=== PATIENT | male | born 1960 | race Caucasian/White ===

== ENCOUNTER 2021-08-12 14:37 | Emergency (ER) | payer OTHER ==
[2021-08-12 15:08] VITALS: TEMP 98.3; BMI 14.0
[2021-08-12] MEDS ORDERED: DIPHTH,PERTUSS(ACELL),TET 0.5 ML DISP.SYRIN IM ONE ×2 (15:19→16:15)
[2021-08-12 16:38] LABS: BASO % 0.7 % (0-2.0); EOS % 0.8 % (0-4.5); HEMATOCRIT 31.5 % (35.4-49); HEMOGLOBIN 10.4 GM/dL (11.7-16.9); LYMPH % 12.4 % (8-40); MCH 26.2 pg (25.7-33.7); MEAN CELL VOLUME 79.3 fl (80-96); MEAN PLT VOLUME 7.9 fl (7.5-11.1); MONO % 7.1 % (3.8-10.2); PLATELET COUNT 384 10^3/uL (134-434); RBC 3.97 M/mm3 (4.00-5.60); RDW 18.3 % (11.9-15.9); WHITE BLOOD COUNT 10.2 K/mm3 (4.0-10.0)
[2021-08-12 16:57] LABS: CHLORIDE 97 mmol/L (98-107); SODIUM 139 mmol/L (136-145)
[2021-08-12 16:59] LABS: CALCIUM 9.3 mg/dL (8.5-10.1)
[2021-08-12 17:00] LABS: ANION GAP 8 MMOL/L (8-16); BLOOD UREA NITROGEN 17.3 mg/dL (7-18); CO2 34 mmol/L (21-32); GLUCOSE,RANDOM 97 mg/dL (74-106)
[2021-08-12 17:03] LABS: CREATININE 0.6 mg/dL (0.55-1.3); SGOT/AST 31 U/L (15-37); SGPT/ALT 64 U/L (13-61)
[2021-08-12 17:05] LABS: BILIRUBIN,TOTAL 0.3 mg/dL (0.2-1); TOT PROT 8.7 g/dl (6.4-8.2)
[2021-08-12 17:06] LABS: ALK PHOS 108 U/L (45-117)
[2021-08-12 22:15] VITALS: BP 127/95; PULSE 75
== END 2021-08-12 23:49 | disposition home or self-care (01) ==
LOC: JER 14:37
PROC: 3E0234Z Introduction of Serum, Toxoid and Vaccine into Muscle, Percutaneous Approach (ICD-10-PCS; principal; 2021-08-12)
DX: S01.91XA Laceration without foreign body of unspecified part of head, initial encounter (principal); W19.XXXA Unspecified fall, initial encounter
CPT/HCPCS: 36415; 70450-TC; 72125-TC; 80053; 82550; 84484; 85025; 90471; 90715; 93005; 93010; 99285-25

== ENCOUNTER 2021-10-16 10:08 | Inpatient (IN) | payer OTHER ==
[2021-10-16] MEDS ORDERED: SODIUM CHLORIDE 0.9% 500 ML INFUS.BAG IV ONE (10:32)
[2021-10-16] MEDS ORDERED: ACETAMINOPHEN 1000 MG/100 ML BAG IVPB ONE (10:32)
[2021-10-16] MEDS ORDERED: PIPERACILLIN/TAZOB 4.5 GM 4.5 GM in DEXTROSE 5%-WATER 100 ML IVPB ONE (11:11)
[2021-10-16] MEDS ORDERED: PIPERACILLIN/TAZOB 4.5 GM 4.5 GM/100 ML BAG IVPB ONE (11:33)
[2021-10-16] MEDS ORDERED: ACETAMINOPHEN INJECTION 100 ML IVPB ONE (11:33)
[2021-10-16 12:07] LABS: VENOUS BASE EXCESS 10.6 mmol/L (-2-2); VENOUS O2 SATURATION 94.1 % (70-80); VENOUS PCO2 49.8 mmHg (38-52); VENOUS PH 7.472 (7.310-7.410)
[2021-10-16 12:11] LABS: HEMATOCRIT 29.4 % (35.4-49); HEMOGLOBIN 9.4 GM/dL (11.7-16.9); MCH 26.9 pg (25.7-33.7); MEAN CELL VOLUME 83.9 fl (80-96); PLATELET COUNT 391 10^3/uL (134-434); RDW 15.2 % (11.9-15.9); WHITE BLOOD COUNT 20.7 K/mm3 (4.0-10.0)
[2021-10-16 12:21] LABS: INR 1.64 (0.83-1.09); PROTHROMBIN TIME (PATIENT) 18.5 SEC (9.7-13.0)
[2021-10-16 12:23] LABS: ACTIVATED PTT 32.6 SECONDS (25.2-36.5)
[2021-10-16 12:30] LABS: CHLORIDE 96 mmol/L (98-107); SODIUM 137 mmol/L (136-145)
[2021-10-16 12:32] LABS: ALBUMIN 2.4 g/dl (3.4-5.0); ANION GAP 8 MMOL/L (8-16); BLOOD UREA NITROGEN 27.1 mg/dL (7-18); CALCIUM 9.1 mg/dL (8.5-10.1); CO2 32 mmol/L (21-32); GLUCOSE,RANDOM 118 mg/dL (74-106)
[2021-10-16 12:35] LABS: CREATININE 0.8 mg/dL (0.55-1.3); SGOT/AST 44 U/L (15-37); SGPT/ALT 37 U/L (13-61)
[2021-10-16 12:37] LABS: BILIRUBIN,TOTAL 0.8 mg/dL (0.2-1)
[2021-10-16 12:38] LABS: ALK PHOS 100 U/L (45-117)
[2021-10-16 12:58] LABS: ANISOCYTOSIS 2+; MACROCYTOSIS 0; PLATELET ESTIMATE NORMAL
[2021-10-16] MEDS ORDERED: ACETAMINOPHEN 325 MG TABLET (FP) PO PRN (15:21)
[2021-10-16] MEDS ORDERED: VANCOMYCIN 1 GM in D5W (PRE-DOCKED) 1,000 MG/250 ML IVPB ONE (15:27)
[2021-10-16] MEDS ORDERED: VANCOMYCIN 1 GRAM (PRE-DOCKED) 1,000 MG/250 ML BAG IVPB ONE (16:20)
[2021-10-16] MEDS ORDERED: ENOXAPARIN NA (PORCINE) 40 MG/0.4 ML DISP.SYRIN SQ ONE (16:20)
[2021-10-16] MEDS: ENOXAPARIN NA (PORCINE) 40 MG/0.4 ML DISP.SYRIN SQ SCH (17:09)
[2021-10-16] MEDS: SODIUM CHLORIDE 1,000 ML IV SCH (17:09)
[2021-10-16] MEDS ORDERED: DEXTROSE 5%-WATER - 50 ML IVPB ONE (19:54)
[2021-10-16] MEDS ORDERED: PIPERACILLIN/TAZOBACTAM 3.375 GM VIAL IVPB ONE (19:54)
[2021-10-16] MEDS: PIPERACILLIN/TAZOB 3.375 GM 3.375 GM in DEXTROSE 5%-WATER - 50 ML IVPB SCH (20:08)
[2021-10-17] MEDS ORDERED: PIPERACILLIN/TAZOBACTAM 3.375 GM VIAL IVPB ONE ×3 (01:09→18:31)
[2021-10-17] MEDS ORDERED: DEXTROSE 5%-WATER - 50 ML IVPB ONE ×3 (01:10→18:32)
[2021-10-17] MEDS: PIPERACILLIN/TAZOB 3.375 GM 3.375 GM in DEXTROSE 5%-WATER - 50 ML IVPB SCH ×3 (01:48→18:34)
[2021-10-17] MEDS: SODIUM CHLORIDE 1,000 ML IV SCH ×2 (06:37→17:20)
[2021-10-17] MEDS: ENOXAPARIN NA (PORCINE) 40 MG/0.4 ML DISP.SYRIN SQ SCH ×2 (09:01→18:22)
[2021-10-17 11:12] LABS: EPI CELLS 19 /uL (0-25.1); HYALINE CASTS 0 /uL (0-3.1); PH,URINE 6.5 (5.0-8.0); URINE APPEARANCE CLEAR; URINE BACTERIA 1693 /uL (0-1359); URINE BILIRUBIN NEGATIVE (NEGATIVE); URINE COLOR DK YELLOW; URINE GLUCOSE (UA) NEGATIVE (NEGATIVE); URINE KETONE TRACE (NEGATIVE); URINE LEUK ESTERASE NEGATIVE (NEGATIVE); URINE NITRITE NEGATIVE (NEGATIVE); URINE PROTEIN 2+ (NEGATIVE); URINE RBC 34 /uL (0-23.9); URINE WBC 17 /uL (0-25.8)
[2021-10-17 13:03] LABS: BASO % 0.4 % (0-2.0); EOS % 0.7 % (0-4.5); HEMOGLOBIN 7.7 GM/dL (11.7-16.9); LYMPH % 8.6 % (8-40); MCH 27.2 pg (25.7-33.7); MCHC 32.2 g/dl (32.0-35.9); MEAN CELL VOLUME 84.4 fl (80-96); MEAN PLT VOLUME 8.6 fl (7.5-11.1); MONO % 6.9 % (3.8-10.2); NEUT % 83.4 % (42.8-82.8); PLATELET COUNT 296 10^3/uL (134-434); RBC 2.85 M/mm3 (4.00-5.60); RDW 15.6 % (11.9-15.9); WHITE BLOOD COUNT 11.6 K/mm3 (4.0-10.0)
[2021-10-17 13:33] LABS: ALBUMIN 1.9 g/dl (3.4-5.0); BLOOD UREA NITROGEN 19.4 mg/dL (7-18); CALCIUM 8.8 mg/dL (8.5-10.1)
[2021-10-17 13:34] LABS: MAGNESIUM 2.1 mg/dL (1.8-2.4)
[2021-10-17 13:36] LABS: CREATININE 0.5 mg/dL (0.55-1.3)
[2021-10-17 13:37] LABS: BILIRUBIN,TOTAL 0.6 mg/dL (0.2-1); TOT PROT 6.5 g/dl (6.4-8.2)
[2021-10-17] MEDS ORDERED: ACETAMINOPHEN 650 MG/20.3 ML ORAL SOLUTION (CUPS) PEG PRN (15:05)
[2021-10-17] MEDS ORDERED: LEXAPRO PEG SCH (15:15)
[2021-10-17] MEDS ORDERED: ROSUVASTATIN CA 40 MG TABLET NR SCH (15:15)
[2021-10-17] MEDS: ARIPiprazole 2 MG TABLET NR SCH (18:32)
[2021-10-17] MEDS: SENNOSIDES 8.8 MG/5 ML BULK BOTTLE PEG SCH (18:33)
[2021-10-17] MEDS: FUROSEMIDE 40 MG/5 ML UNIT-DOSE CUP PEG SCH (18:33)
[2021-10-17] MEDS: DOCUSATE NA 100 MG/10 ML UNIT-DOSE CUPS GT SCH (18:34)
[2021-10-17] MEDS: ASPIRIN 81 MG CHEWABLE TABLETS PEG SCH (18:34)
[2021-10-17] MEDS: GLYCOPYRROLATE PEG SCH (18:48)
[2021-10-17] MEDS: SCOPOLAMINE HYDROBROMIDE 1 PATCH PATCH.TD72 TD SCH ×2 (18:51→22:13)
[2021-10-17] MEDS: MELATONIN 1 MG TABLET NR SCH (22:02)
[2021-10-17] MEDS: traZODone HCL 50 MG TABLET (FP) PEG SCH (22:02)
[2021-10-17] MEDS: FAMOTIDINE 40 MG/5 ML ORAL SUSPENSION PEG SCH (22:10)
[2021-10-17] MEDS: GABAPENTIN 250 MG/5 ML ORAL SOLUTION, 470 ML BOTTLE PEG SCH (22:11)
[2021-10-18] MEDS ORDERED: DEXTROSE 5%-WATER - 50 ML IVPB ONE ×3 (01:18→17:16)
[2021-10-18] MEDS ORDERED: PIPERACILLIN/TAZOBACTAM 3.375 GM VIAL IVPB ONE ×3 (01:18→17:16)
[2021-10-18] MEDS: PIPERACILLIN/TAZOB 3.375 GM 3.375 GM in DEXTROSE 5%-WATER - 50 ML IVPB SCH ×3 (01:52→17:27)
[2021-10-18] MEDS ORDERED: PT OWN MED DRAWER 7, Y5N ONE ×2 (09:52→22:00)
[2021-10-18] MEDS ORDERED: ESCITALOPRAM OXALATE 20 MG TABLET PEG SCH (10:00)
[2021-10-18 10:52] LABS: HEMATOCRIT 23.5 % (35.4-49); HEMOGLOBIN 7.5 GM/dL (11.7-16.9); MCH 27.5 pg (25.7-33.7); MEAN CELL VOLUME 85.9 fl (80-96); MEAN PLT VOLUME 9.3 fl (7.5-11.1); PLATELET COUNT 349 10^3/uL (134-434); RBC 2.74 M/mm3 (4.00-5.60); RDW 15.3 % (11.9-15.9); WHITE BLOOD COUNT 6.7 K/mm3 (4.0-10.0)
[2021-10-18 11:40] LABS: CALCIUM 8.5 mg/dL (8.5-10.1)
[2021-10-18 11:41] LABS: ALBUMIN 2.1 g/dl (3.4-5.0)
[2021-10-18 11:42] LABS: BLOOD UREA NITROGEN 17.7 mg/dL (7-18)
[2021-10-18 11:44] LABS: CREATININE 0.5 mg/dL (0.55-1.3)
[2021-10-18 11:45] LABS: BILIRUBIN,TOTAL 0.5 mg/dL (0.2-1); TOT PROT 6.6 g/dl (6.4-8.2)
[2021-10-18] MEDS: DOCUSATE NA 100 MG/10 ML UNIT-DOSE CUPS GT SCH (12:34)
[2021-10-18] MEDS: ASPIRIN 81 MG CHEWABLE TABLETS PEG SCH (12:35)
[2021-10-18] MEDS: ESCITALOPRAM OXALATE 20 MG TABLET PEG SCH (12:35)
[2021-10-18] MEDS: ROSUVASTATIN CA 20 MG TABLET NR SCH (12:35)
[2021-10-18] MEDS: FUROSEMIDE 40 MG/5 ML UNIT-DOSE CUP PEG SCH (12:35)
[2021-10-18] MEDS: ENOXAPARIN NA (PORCINE) 40 MG/0.4 ML DISP.SYRIN SQ SCH (12:36)
[2021-10-18] MEDS: SENNOSIDES 8.8 MG/5 ML BULK BOTTLE PEG SCH (12:36)
[2021-10-18] MEDS: FAMOTIDINE 40 MG/5 ML ORAL SUSPENSION PEG SCH ×2 (12:36→22:04)
[2021-10-18] MEDS: GABAPENTIN 250 MG/5 ML ORAL SOLUTION, 470 ML BOTTLE PEG SCH ×2 (12:37→22:05)
[2021-10-18] MEDS: GLYCOPYRROLATE PEG SCH (12:38)
[2021-10-18] MEDS: ARIPiprazole 2 MG TABLET NR SCH (12:38)
[2021-10-18] MEDS: GLYCOPYRROLATE 1 MG TABLET PEG SCH ×2 (15:56→22:06)
[2021-10-18] MEDS: BUDESONIDE 0.5 MG/2 ML INH SUSP VIAL NEB SCH ×3 (20:43→22:05)
[2021-10-18] MEDS: ALBUTEROL SO4 0.083% IH SOL 2.5 MG/3 ML VIAL.NEB. NEB SCH ×2 (20:44→22:06)
[2021-10-18] MEDS: traZODone HCL 50 MG TABLET (FP) PEG SCH (22:04)
[2021-10-18] MEDS: MELATONIN 1 MG TABLET NR SCH (22:05)
[2021-10-19] MEDS ORDERED: DEXTROSE 5%-WATER - 50 ML IVPB ONE ×3 (00:45→20:00)
[2021-10-19] MEDS ORDERED: PIPERACILLIN/TAZOBACTAM 3.375 GM VIAL IVPB ONE ×3 (00:45→19:59)
[2021-10-19] MEDS: PIPERACILLIN/TAZOB 3.375 GM 3.375 GM in DEXTROSE 5%-WATER - 50 ML IVPB SCH ×3 (01:00→20:21)
[2021-10-19] MEDS: GLYCOPYRROLATE 1 MG TABLET PEG SCH ×3 (05:39→22:45)
[2021-10-19] MEDS ORDERED: PT OWN MED DRAWER 7, Y5N ONE ×3 (05:41→13:07)
[2021-10-19 07:14] LABS: HEMATOCRIT 21.4 % (35.4-49); MCH 27.2 pg (25.7-33.7); MCHC 32.3 g/dl (32.0-35.9); MEAN CELL VOLUME 84.1 fl (80-96); MEAN PLT VOLUME 8.5 fl (7.5-11.1); PLATELET COUNT 321 10^3/uL (134-434); RBC 2.54 M/mm3 (4.00-5.60); RDW 15.2 % (11.9-15.9); WHITE BLOOD COUNT 6.7 K/mm3 (4.0-10.0)
[2021-10-19 07:32] LABS: CALCIUM 8.2 mg/dL (8.5-10.1)
[2021-10-19 07:33] LABS: BLOOD UREA NITROGEN 13.6 mg/dL (7-18)
[2021-10-19 07:36] LABS: CREATININE 0.6 mg/dL (0.55-1.3)
[2021-10-19 07:38] LABS: BILIRUBIN,TOTAL 0.3 mg/dL (0.2-1); TOT PROT 6.4 g/dl (6.4-8.2)
[2021-10-19 08:48] LABS: HEMOGLOBIN 6.9 GM/dL (11.7-16.9)
[2021-10-19] MEDS: ASPIRIN 81 MG CHEWABLE TABLETS PEG SCH (11:03)
[2021-10-19] MEDS: DOCUSATE NA 100 MG/10 ML UNIT-DOSE CUPS GT SCH (11:04)
[2021-10-19] MEDS: ARIPiprazole 2 MG TABLET NR SCH (11:04)
[2021-10-19] MEDS: FUROSEMIDE 40 MG/5 ML UNIT-DOSE CUP PEG SCH (11:05)
[2021-10-19] MEDS: ROSUVASTATIN CA 20 MG TABLET NR SCH (11:05)
[2021-10-19] MEDS: ESCITALOPRAM OXALATE 20 MG TABLET PEG SCH (11:05)
[2021-10-19] MEDS: FAMOTIDINE 40 MG/5 ML ORAL SUSPENSION PEG SCH ×2 (11:06→23:43)
[2021-10-19] MEDS: SENNOSIDES 8.8 MG/5 ML BULK BOTTLE PEG SCH (11:07)
[2021-10-19] MEDS: GABAPENTIN 250 MG/5 ML ORAL SOLUTION, 470 ML BOTTLE PEG SCH ×2 (11:48→22:44)
[2021-10-19 20:07] LABS: GLIADIN ANTIBODY IGA 6 units (0-19); GLIADIN ANTIBODY IGG 1 units (0-19); TRANSGLUTAMINASE IGG 4 U/mL (0-5)
[2021-10-19] MEDS: MELATONIN 1 MG TABLET NR SCH (22:43)
[2021-10-19] MEDS: traZODone HCL 50 MG TABLET (FP) PEG SCH (22:43)
[2021-10-20] MEDS ORDERED: DEXTROSE 5%-WATER - 50 ML IVPB ONE ×3 (01:46→16:32)
[2021-10-20] MEDS ORDERED: PIPERACILLIN/TAZOBACTAM 3.375 GM VIAL IVPB ONE ×3 (01:46→16:32)
[2021-10-20] MEDS: PIPERACILLIN/TAZOB 3.375 GM 3.375 GM in DEXTROSE 5%-WATER - 50 ML IVPB SCH ×3 (02:42→17:34)
[2021-10-20] MEDS: GLYCOPYRROLATE 1 MG TABLET PEG SCH ×3 (07:04→22:04)
[2021-10-20 09:49] LABS: HEMOGLOBIN 8.8 GM/dL (11.7-16.9); MCH 28.2 pg (25.7-33.7); MCHC 33.8 g/dl (32.0-35.9); MEAN CELL VOLUME 83.4 fl (80-96); MEAN PLT VOLUME 8.4 fl (7.5-11.1); PLATELET COUNT 326 10^3/uL (134-434); RBC 3.12 M/mm3 (4.00-5.60); RDW 15.7 % (11.9-15.9); WHITE BLOOD COUNT 7.5 K/mm3 (4.0-10.0)
[2021-10-20 10:13] LABS: ALBUMIN 2.1 g/dl (3.4-5.0); BLOOD UREA NITROGEN 12.3 mg/dL (7-18)
[2021-10-20 10:14] LABS: CALCIUM 8.1 mg/dL (8.5-10.1)
[2021-10-20] MEDS ORDERED: PT OWN MED DRAWER 7, Y5N ONE ×3 (10:14→21:58)
[2021-10-20 10:16] LABS: CREATININE 0.6 mg/dL (0.55-1.3)
[2021-10-20] MEDS: ROSUVASTATIN CA 20 MG TABLET NR SCH (10:16)
[2021-10-20] MEDS: ESCITALOPRAM OXALATE 20 MG TABLET PEG SCH (10:16)
[2021-10-20] MEDS: DOCUSATE NA 100 MG/10 ML UNIT-DOSE CUPS GT SCH (10:16)
[2021-10-20 10:18] LABS: BILIRUBIN,TOTAL 0.7 mg/dL (0.2-1); TOT PROT 6.6 g/dl (6.4-8.2)
[2021-10-20] MEDS: ASPIRIN 81 MG CHEWABLE TABLETS PEG SCH (10:19)
[2021-10-20] MEDS: FUROSEMIDE 40 MG/5 ML UNIT-DOSE CUP PEG SCH (10:20)
[2021-10-20] MEDS: FAMOTIDINE 40 MG/5 ML ORAL SUSPENSION PEG SCH ×2 (10:20→22:04)
[2021-10-20] MEDS: SENNOSIDES 8.8 MG/5 ML BULK BOTTLE PEG SCH (10:20)
[2021-10-20] MEDS: ARIPiprazole 2 MG TABLET NR SCH (10:21)
[2021-10-20] MEDS: GABAPENTIN 250 MG/5 ML ORAL SOLUTION, 470 ML BOTTLE PEG SCH ×2 (10:23→22:03)
[2021-10-20] MEDS: SCOPOLAMINE HYDROBROMIDE 1 PATCH PATCH.TD72 TD SCH (17:35)
[2021-10-20] MEDS: BUDESONIDE 0.5 MG/2 ML INH SUSP VIAL NEB SCH ×2 (22:01→22:02)
[2021-10-20] MEDS: ALBUTEROL SO4 0.083% IH SOL 2.5 MG/3 ML VIAL.NEB. NEB SCH ×2 (22:02→22:03)
[2021-10-20] MEDS: traZODone HCL 50 MG TABLET (FP) PEG SCH (22:03)
[2021-10-20] MEDS: MELATONIN 1 MG TABLET NR SCH (22:03)
[2021-10-21] MEDS ORDERED: DEXTROSE 5%-WATER - 50 ML IVPB ONE ×3 (00:58→16:54)
[2021-10-21] MEDS ORDERED: PIPERACILLIN/TAZOBACTAM 3.375 GM VIAL IVPB ONE ×3 (00:58→16:54)
[2021-10-21] MEDS: PIPERACILLIN/TAZOB 3.375 GM 3.375 GM in DEXTROSE 5%-WATER - 50 ML IVPB SCH ×3 (01:37→17:05)
[2021-10-21] MEDS ORDERED: PT OWN MED DRAWER 7, Y5N ONE ×3 (05:04→22:07)
[2021-10-21] MEDS: GLYCOPYRROLATE 1 MG TABLET PEG SCH ×3 (05:06→22:15)
[2021-10-21] MEDS ORDERED: VANCOMYCIN 1 GM in D5W (PRE-DOCKED) 1,000 MG/250 ML IVPB ONE (08:32)
[2021-10-21] MEDS: DOCUSATE NA 100 MG/10 ML UNIT-DOSE CUPS GT SCH (09:29)
[2021-10-21] MEDS: ASPIRIN 81 MG CHEWABLE TABLETS PEG SCH (09:29)
[2021-10-21] MEDS: ROSUVASTATIN CA 20 MG TABLET NR SCH (09:29)
[2021-10-21] MEDS: ESCITALOPRAM OXALATE 20 MG TABLET PEG SCH (09:29)
[2021-10-21] MEDS: FUROSEMIDE 40 MG/5 ML UNIT-DOSE CUP PEG SCH (09:30)
[2021-10-21] MEDS: FAMOTIDINE 40 MG/5 ML ORAL SUSPENSION PEG SCH ×2 (09:31→22:15)
[2021-10-21] MEDS: SENNOSIDES 8.8 MG/5 ML BULK BOTTLE PEG SCH (09:32)
[2021-10-21] MEDS: ARIPiprazole 2 MG TABLET NR SCH (09:32)
[2021-10-21] MEDS: GABAPENTIN 250 MG/5 ML ORAL SOLUTION, 470 ML BOTTLE PEG SCH ×2 (09:40→22:14)
[2021-10-21 16:49] VITALS: BMI 19.9
[2021-10-21] MEDS: VANCOMYCIN 1 GRAM (PRE-DOCKED) 1,000 MG/250 ML BAG IVPB SCH (22:11)
[2021-10-21] MEDS: MELATONIN 1 MG TABLET NR SCH (22:14)
[2021-10-21] MEDS: traZODone HCL 50 MG TABLET (FP) PEG SCH (22:14)
[2021-10-22] MEDS ORDERED: DEXTROSE 5%-WATER - 50 ML IVPB ONE ×3 (01:09→16:57)
[2021-10-22] MEDS ORDERED: PIPERACILLIN/TAZOBACTAM 3.375 GM VIAL IVPB ONE ×3 (01:09→16:57)
[2021-10-22] MEDS: PIPERACILLIN/TAZOB 3.375 GM 3.375 GM in DEXTROSE 5%-WATER - 50 ML IVPB SCH ×3 (01:30→17:27)
[2021-10-22] MEDS: GLYCOPYRROLATE 1 MG TABLET PEG SCH ×3 (05:36→22:28)
[2021-10-22] MEDS: BUDESONIDE 0.5 MG/2 ML INH SUSP VIAL NEB SCH ×3 (08:34→12:03)
[2021-10-22] MEDS: ALBUTEROL SO4 0.083% IH SOL 2.5 MG/3 ML VIAL.NEB. NEB SCH ×3 (08:34→12:03)
[2021-10-22] MEDS ORDERED: PT OWN MED DRAWER 7, Y5N ONE (09:04)
[2021-10-22] MEDS: VANCOMYCIN 1 GRAM (PRE-DOCKED) 1,000 MG/250 ML BAG IVPB SCH ×2 (09:31→20:13)
[2021-10-22] MEDS: ASPIRIN 81 MG CHEWABLE TABLETS PEG SCH (09:32)
[2021-10-22] MEDS: ESCITALOPRAM OXALATE 20 MG TABLET PEG SCH (09:32)
[2021-10-22] MEDS: DOCUSATE NA 100 MG/10 ML UNIT-DOSE CUPS GT SCH (09:32)
[2021-10-22] MEDS: ROSUVASTATIN CA 20 MG TABLET NR SCH (09:32)
[2021-10-22] MEDS: ARIPiprazole 2 MG TABLET NR SCH (09:33)
[2021-10-22] MEDS: FUROSEMIDE 40 MG/5 ML UNIT-DOSE CUP PEG SCH ×2 (09:33→10:54)
[2021-10-22] MEDS: SENNOSIDES 8.8 MG/5 ML BULK BOTTLE PEG SCH (09:33)
[2021-10-22 09:37] LABS: HEMATOCRIT 27.8 % (35.4-49); HEMOGLOBIN 8.8 GM/dL (11.7-16.9); MCH 27.1 pg (25.7-33.7); MCHC 31.7 g/dl (32.0-35.9); MEAN CELL VOLUME 85.5 fl (80-96); MEAN PLT VOLUME 8.5 fl (7.5-11.1); PLATELET COUNT 419 10^3/uL (134-434); RBC 3.25 M/mm3 (4.00-5.60); RDW 15.8 % (11.9-15.9); WHITE BLOOD COUNT 6.7 K/mm3 (4.0-10.0)
[2021-10-22] MEDS: FAMOTIDINE 40 MG/5 ML ORAL SUSPENSION PEG SCH ×2 (09:37→22:27)
[2021-10-22] MEDS: GABAPENTIN 250 MG/5 ML ORAL SOLUTION, 470 ML BOTTLE PEG SCH ×2 (09:39→22:27)
[2021-10-22 10:02] LABS: BLOOD UREA NITROGEN 10.5 mg/dL (7-18); CALCIUM 8.4 mg/dL (8.5-10.1); CREATININE 0.7 mg/dL (0.55-1.3); MAGNESIUM 2.3 mg/dL (1.8-2.4); PHOSPHOROUS 3.5 mg/dL (2.5-4.9)
[2021-10-22] MEDS: MELATONIN 1 MG TABLET NR SCH (22:26)
[2021-10-22] MEDS: traZODone HCL 50 MG TABLET (FP) PEG SCH (22:26)
[2021-10-23] MEDS ORDERED: DEXTROSE 5%-WATER - 50 ML IVPB ONE ×2 (00:28→08:33)
[2021-10-23] MEDS ORDERED: PIPERACILLIN/TAZOBACTAM 3.375 GM VIAL IVPB ONE ×2 (00:28→08:33)
[2021-10-23] MEDS: PIPERACILLIN/TAZOB 3.375 GM 3.375 GM in DEXTROSE 5%-WATER - 50 ML IVPB SCH ×2 (01:32→10:10)
[2021-10-23] MEDS: GLYCOPYRROLATE 1 MG TABLET PEG SCH (05:40)
[2021-10-23] MEDS ORDERED: PT OWN MED DRAWER 7, Y5N ONE (09:01)
[2021-10-23] MEDS: VANCOMYCIN 1 GRAM (PRE-DOCKED) 1,000 MG/250 ML BAG IVPB SCH (09:04)
[2021-10-23] MEDS: DOCUSATE NA 100 MG/10 ML UNIT-DOSE CUPS GT SCH (09:09)
[2021-10-23] MEDS: ASPIRIN 81 MG CHEWABLE TABLETS PEG SCH (09:10)
[2021-10-23] MEDS: ESCITALOPRAM OXALATE 20 MG TABLET PEG SCH (09:10)
[2021-10-23] MEDS: ROSUVASTATIN CA 20 MG TABLET NR SCH (09:10)
[2021-10-23] MEDS: FAMOTIDINE 40 MG/5 ML ORAL SUSPENSION PEG SCH (09:10)
[2021-10-23] MEDS: SENNOSIDES 8.8 MG/5 ML BULK BOTTLE PEG SCH (09:11)
[2021-10-23] MEDS: FUROSEMIDE 40 MG/5 ML UNIT-DOSE CUP PEG SCH (09:11)
[2021-10-23] MEDS: ARIPiprazole 2 MG TABLET NR SCH (09:11)
[2021-10-23] MEDS: GABAPENTIN 250 MG/5 ML ORAL SOLUTION, 470 ML BOTTLE PEG SCH (09:12)
[2021-10-23 09:15] VITALS: TEMP 98.5
[2021-10-23] MEDS ORDERED: SODIUM CHLORIDE 500 ML IV STA (09:39)
[2021-10-23] MEDS: BUDESONIDE 0.5 MG/2 ML INH SUSP VIAL NEB SCH ×2 (09:48→10:16)
[2021-10-23] MEDS: ALBUTEROL SO4 0.083% IH SOL 2.5 MG/3 ML VIAL.NEB. NEB SCH ×2 (09:48→10:17)
[2021-10-23 10:36] VITALS: BP 98/71; PULSE 60
== END 2021-10-23 11:32 | DRG 720 ==
LOC: JER 10:08 → JERBED 12:15 → J5S 17:46
PROVIDERS: ADMIT Internal Medicine; ATTEND Internal Medicine
PROC: 5A1955Z Respiratory Ventilation, Greater than 96 Consecutive Hours (ICD-10-PCS; principal; 2021-10-16)
PROC: 0D20XUZ Change Feeding Device in Upper Intestinal Tract, External Approach (ICD-10-PCS; 2021-10-17)
DX: A41.52 Sepsis due to Pseudomonas (principal); R50.9 Fever, unspecified; G82.50 Quadriplegia, unspecified; J95.851 Ventilator associated pneumonia; J96.10 Chronic respiratory failure, unspecified whether with hypoxia or hypercapnia; N39.0 Urinary tract infection, site not specified; K94.23 Gastrostomy malfunction; E78.5 Hyperlipidemia, unspecified; D50.9 Iron deficiency anemia, unspecified; B95.2 Enterococcus as the cause of diseases classified elsewhere; D72.829 Elevated white blood cell count, unspecified; Z74.01 Bed confinement status; Z93.0 Tracheostomy status; Z86.73 Personal history of transient ischemic attack (TIA), and cerebral infarction without residual deficits
CPT/HCPCS: 36415; 36430; 36511; 71045-TC-FY; 74018-TC-FY; 80048; 80053; 81003; 82272; 82607; 82728; 82746; 82784; 82803; 83010; 83516; 83540; 83550; 83605; 83615; 83735; 84100; 84155; 84165; 84238; 84443; 84484; 85025; 85027; 85045; 85610; 85730; 86334; 86707; 86708; 86850; 86880; 86900; 86901; 86922; 87040; 87070; 87086; 87186; 87205; 87340; 87350; 87804; 87902; 93005; 93010; 94002; 97161-GP; 99285-25; C9803-CS; P9038; P9058; U0003; U0005

== ENCOUNTER 2024-07-02 06:27 | Inpatient (IN) | payer OTHER ==
[2024-07-02 07:36] LABS: BASO % 0.6 % (0-2.0); EOS % 1.2 % (0-4.5); HEMATOCRIT 41.6 % (35.4-49); HEMOGLOBIN 13.4 GM/dL (11.7-16.9); MCH 27.4 pg (25.7-33.7); MCHC 32.2 g/dl (32.0-35.9); MEAN PLT VOLUME 8.9 fl (7.5-11.1); MONO % 10.8 % (3.8-10.2); NEUT % 73.4 % (42.8-82.8); PLATELET COUNT 380 10^3/uL (134-434); RDW 15.2 % (11.9-15.9); WHITE BLOOD COUNT 10.3 K/mm3 (4.0-10.0)
[2024-07-02 07:55] LABS: INR 1.16 (0.83-1.09); PROTHROMBIN TIME (PATIENT) 13.3 SEC (9.7-13.0)
[2024-07-02 07:57] LABS: POTASSIUM 3.5 mmol/L (3.5-5.1)
[2024-07-02 07:59] LABS: CALCIUM 9.2 mg/dL (8.5-10.1)
[2024-07-02] MEDS ORDERED: FAMOTIDINE 20 MG/50 ML IVPB 20 MG/50 ML MG IVPB ONE (07:59)
[2024-07-02] MEDS ORDERED: PANTOPRAZOLE SODIUM 40 MG VIAL ONE (07:59)
[2024-07-02] MEDS ORDERED: ACETAMINOPHEN INJECTION 100 ML ONE (07:59)
[2024-07-02 08:00] LABS: BLOOD UREA NITROGEN 18.7 mg/dL (7-18); MAGNESIUM 2.4 mg/dL (1.8-2.4)
[2024-07-02 08:03] LABS: CREATININE 0.8 mg/dL (0.55-1.3)
[2024-07-02 08:04] LABS: BILIRUBIN,TOTAL 0.4 mg/dL (0.2-1); TOT PROT 8.3 g/dl (6.4-8.2)
[2024-07-02] MEDS: SODIUM CHLORIDE 1,000 ML IV STA (08:10)
[2024-07-02] MEDS: PANTOPRAZOLE SODIUM 40 MG VIAL IVPUSH ONE (08:10)
[2024-07-02] MEDS: FAMOTIDINE 20 MG/50 ML IVPB 20 MG/50 ML MG IVPB ONE (08:10)
[2024-07-02] MEDS: ACETAMINOPHEN 1000 MG/100 ML BAG IVPB ONE (08:10)
[2024-07-02] MEDS ORDERED: ONDANSETRON 4 MG/2 ML VIAL ONE (14:08)
[2024-07-02] MEDS: SODIUM CHLORIDE 1,000 ML IV SCH (14:19)
[2024-07-02] MEDS: ONDANSETRON 4 MG/2 ML VIAL IVPB ONE (14:19)
[2024-07-02] MEDS ORDERED: PIPERACILLIN/TAZOB 4.5 GM 4.5 GM in DEXTROSE 5%-WATER 100 ML IVPB SCH (18:00)
[2024-07-02] MEDS ORDERED: VANCOMYCIN HCL 1,500 MG in DEXTROSE 5%-WATER - 250 ML IVPB SCH (18:00)
[2024-07-02] MEDS ORDERED: PIPERACILLIN/TAZOB 4.5 GM 4.5 GM/100 ML BAG IVPB ONE (18:51)
[2024-07-02] MEDS: PIPERACILLIN/TAZOB 4.5 GM 4.5 GM in DEXTROSE 5%-WATER 100 ML IVPB SCH (18:54)
[2024-07-02] MEDS: VANCOMYCIN PREMIX 1.5 GM 1,500 MG/300 ML BAG IVPB SCH (21:18)
[2024-07-02] MEDS: GLYCOPYRROLATE 1 MG TABLET GT SCH (21:18)
[2024-07-02] MEDS: ALBUTEROL SO4 0.083% IH SOL 2.5 MG/3 ML VIAL.NEB. NEB SCH (21:20)
[2024-07-02] MEDS: traZODone HCL 50 MG TABLET (FP) PEG SCH (21:21)
[2024-07-02] MEDS: ROSUVASTATIN CA 40 MG TABLET PO SCH (21:21)
[2024-07-02] MEDS: ESCITALOPRAM OXALATE 20 MG TABLET GT SCH (21:22)
[2024-07-02] MEDS: LATANOPROST 0.005% OPHTH SOLN 2.5ML BOTTLE OU SCH (21:22)
[2024-07-02] MEDS ORDERED: ALBUTEROL SO4 0.083% IH SOL 2.5 MG/3 ML VIAL.NEB. NEB ONE (21:23)
[2024-07-02] MEDS ORDERED: LACTULOSE 20 GM/30 ML UDC (FOR ORAL USE ONLY) GT SCH (22:00)
[2024-07-02] MEDS ORDERED: BUDESONIDE GT SCH (22:00)
[2024-07-02] MEDS ORDERED: PANTOPRAZOLE SODIUM 40 MG VIAL IVPUSH SCH (22:00)
[2024-07-02] MEDS ORDERED: FAMOTIDINE 20 MG/2 ML GT SCH (22:00)
[2024-07-02] MEDS ORDERED: DOCUSATE NA 100 MG/10 ML UNIT-DOSE CUPS GT SCH (22:00)
[2024-07-02] MEDS ORDERED: SENNOSIDES 8.6MG TABLET (FP) PO SCH (22:00)
[2024-07-02] MEDS ORDERED: ROSUVASTATIN CA 20 MG TABLET PO SCH (23:42)
[2024-07-03] MEDS: GLYCOPYRROLATE 1 MG TABLET GT SCH (06:30)
[2024-07-03] MEDS: PANTOPRAZOLE SODIUM 40 MG VIAL IVPUSH SCH (09:54)
[2024-07-03] MEDS: POLYETHYLENE GLYCOL (HEALTHYLAX) 3350 17 GM PACKET PO SCH (09:54)
[2024-07-03] MEDS: ASPIRIN COATED 81 MG TABLET.EC PO SCH (09:54)
[2024-07-03] MEDS: FAMOTIDINE 20 MG/2.5 ML ORAL LIQUID PEG SCH (09:54)
[2024-07-03] MEDS: FUROSEMIDE 40 MG/5 ML UNIT-DOSE CUP PO SCH (09:54)
[2024-07-03 10:53] LABS: HEMATOCRIT 35.7 % (35.4-49); HEMOGLOBIN 11.6 GM/dL (11.7-16.9); MCH 27.8 pg (25.7-33.7); MCHC 32.6 g/dl (32.0-35.9); MEAN CELL VOLUME 85.3 fl (80-96); MEAN PLT VOLUME 8.7 fl (7.5-11.1); PLATELET COUNT 302 10^3/uL (134-434); RBC 4.18 M/mm3 (4.00-5.60); RDW 15.3 % (11.9-15.9); WHITE BLOOD COUNT 5.9 K/mm3 (4.0-10.0)
[2024-07-03 11:09] LABS: POTASSIUM 3.7 mmol/L (3.5-5.1)
[2024-07-03 11:18] LABS: BLOOD UREA NITROGEN 12.2 mg/dL (7-18); CALCIUM 8.5 mg/dL (8.5-10.1)
[2024-07-03 11:22] LABS: CREATININE 0.9 mg/dL (0.55-1.3)
[2024-07-03 14:36] VITALS: BMI 22.8
[2024-07-03] MEDS ORDERED: FAMOTIDINE 20 MG TABLET PEG SCH (16:30)
[2024-07-03] MEDS: PIPERACILLIN/TAZOB 3.375 GM 3.375 GM in DEXTROSE 5%-WATER - 50 ML IVPB SCH (17:24)
[2024-07-03] MEDS ORDERED: ESCITALOPRAM OXALATE 10 MG TABLET ONE (21:15)
[2024-07-03] MEDS: ATORVASTATIN CA 40 MG TABLET (FP) GT SCH (21:26)
[2024-07-03] MEDS: ESCITALOPRAM OXALATE 10 MG TABLET GT SCH (21:26)
[2024-07-04] MEDS ORDERED: FUROSEMIDE 40 MG/5 ML UNIT-DOSE CUP GT SCH (10:00)
[2024-07-04] MEDS ORDERED: ASPIRIN 81 MG CHEWABLE TABLETS GT SCH (10:00)
[2024-07-04] MEDS: POLYETHYLENE GLYCOL (HEALTHYLAX) 3350 17 GM PACKET GT SCH (10:01)
[2024-07-04 10:18] LABS: BASO % 1.1 % (0-2.0); EOS % 3.1 % (0-4.5); HEMATOCRIT 34.3 % (35.4-49); LYMPH % 25.3 % (8-40); MCH 27.5 pg (25.7-33.7); MEAN CELL VOLUME 85.8 fl (80-96); MONO % 12.8 % (3.8-10.2); NEUT % 57.7 % (42.8-82.8); PLATELET COUNT 293 10^3/uL (134-434); RDW 15.3 % (11.9-15.9); WHITE BLOOD COUNT 4.7 K/mm3 (4.0-10.0)
[2024-07-04 10:31] LABS: POTASSIUM 3.8 mmol/L (3.5-5.1)
[2024-07-04 10:34] LABS: CALCIUM 8.2 mg/dL (8.5-10.1)
[2024-07-04 10:35] LABS: BLOOD UREA NITROGEN 11.5 mg/dL (7-18); MAGNESIUM 2.3 mg/dL (1.8-2.4)
[2024-07-04 10:38] LABS: BILIRUBIN,TOTAL 0.6 mg/dL (0.2-1); CREATININE 0.7 mg/dL (0.55-1.3); PHOSPHOROUS 2.1 mg/dL (2.5-4.9)
[2024-07-04 10:40] LABS: ALBUMIN 2.2 g/dl (3.4-5.0); TOT PROT 6.2 g/dl (6.4-8.2)
[2024-07-04] MEDS: HEPARIN NA (PORCINE) 5,000 UNITS/ML 1ML VIAL SQ SCH (22:01)
[2024-07-05 10:48] LABS: BASO % 0.7 % (0-2.0); EOS % 2.8 % (0-4.5); HEMATOCRIT 33.7 % (35.4-49); LYMPH % 25.3 % (8-40); MCH 27.4 pg (25.7-33.7); MCHC 32.6 g/dl (32.0-35.9); MEAN CELL VOLUME 84.1 fl (80-96); MEAN PLT VOLUME 9.2 fl (7.5-11.1); MONO % 12.5 % (3.8-10.2); NEUT % 58.7 % (42.8-82.8); PLATELET COUNT 296 10^3/uL (134-434); RBC 4.01 M/mm3 (4.00-5.60); RDW 14.9 % (11.9-15.9); WHITE BLOOD COUNT 4.5 K/mm3 (4.0-10.0)
[2024-07-05 12:08] LABS: POTASSIUM 3.7 mmol/L (3.5-5.1)
[2024-07-05 12:19] LABS: ALBUMIN 2.2 g/dl (3.4-5.0); BLOOD UREA NITROGEN 9.5 mg/dL (7-18); CALCIUM 8.4 mg/dL (8.5-10.1); CREATININE 0.8 mg/dL (0.55-1.3)
[2024-07-05 12:32] LABS: BILIRUBIN,TOTAL 0.3 mg/dL (0.2-1); TOT PROT 6.3 g/dl (6.4-8.2)
[2024-07-07 11:36] VITALS: BP 90/75; PULSE 57; RESP 17; TEMP 97.9
== END 2024-07-07 14:18 | DRG 177 ==
LOC: JER 06:27 → JERBED 10:50 → J6S 22:00 → OBSVTOIN 07-03 12:27
PROVIDERS: ADMIT Student in an Organized Health Care Education/Training Program; ATTEND Internal Medicine
DX: J69.0 Pneumonitis due to inhalation of food and vomit (principal); R53.2 Functional quadriplegia; J96.11 Chronic respiratory failure with hypoxia; K94.23 Gastrostomy malfunction; K92.0 Hematemesis; E78.5 Hyperlipidemia, unspecified; I10 Essential (primary) hypertension; E78.00 Pure hypercholesterolemia, unspecified; F32.9 Major depressive disorder, single episode, unspecified; K21.9 Gastro-esophageal reflux disease without esophagitis; K59.00 Constipation, unspecified; Z93.0 Tracheostomy status; Z22.322 Carrier or suspected carrier of Methicillin resistant Staphylococcus aureus
CPT/HCPCS: 0241U-QW; 36415; 71045-TC-FY; 71250-TC; 74018-TC-FY; 74176-TC; 80048; 80053; 82272; 83735; 84100; 84484; 85025; 85027; 85610; 86850; 86900; 86901; 87040; 87070; 87077; 87081; 87186; 87205; 87899; 94640; 97116-GP; 97162-GP; 99285-25; G0378; J0131; J1644

== ENCOUNTER 2024-07-18 22:22 | Emergency (ER) | payer OTHER ==
[2024-07-18 22:47] VITALS: BMI 24.2
[2024-07-18] MEDS ORDERED: ACETAMINOPHEN INJECTION 100 ML ONE (23:51)
[2024-07-19] MEDS: ACETAMINOPHEN 1000 MG/100 ML BAG IVPB ONE (00:05)
[2024-07-19 07:38] VITALS: BP 108/73; PULSE 82; RESP 20; TEMP 97.7
== END 2024-07-19 08:03 ==
LOC: JER 22:22
PROC: 3E033NZ Introduction of Analgesics, Hypnotics, Sedatives into Peripheral Vein, Percutaneous Approach (ICD-10-PCS; principal; 2024-07-19)
DX: S01.01XA Laceration without foreign body of scalp, initial encounter (principal); W18.30XA Fall on same level, unspecified, initial encounter
CPT/HCPCS: 70450-TC; 72125-TC; 99284-25; J0131

== ENCOUNTER 2025-06-06 16:15 | Inpatient (IN) | payer OTHER ==
[2025-06-06 17:29] LABS: ABSOLUTE IMMATURE GRANULOCYTES 0.01 x10^3/uL (0.0-0.031); BASOPHILS # 0.09 x10^3/uL (0.01-0.08); EOSINOPHIL % 1.7 % (0.8-7.0); EOSINOPHILS # 0.10 x10^3/uL (0.04-0.54); MCHC 31.5 g/dl (32.3-36.5); MEAN CELL VOLUME 90.0 fl (79.0-92.2); MEAN PLT VOLUME 11.9 fl (9.4-12.4); MONOCYTE # 0.71 x10^3/uL (0.30-0.82); MONOCYTE % 11.9 % (5.3-12.2); RDW 13.6 % (12.2-16.4)
[2025-06-06 17:36] LABS: INR 1.25 (0.83-1.09); PROTHROMBIN TIME (PATIENT) 13.6 SEC (9.7-13.0)
[2025-06-06 17:39] LABS: ACTIVATED PTT 31.6 SECONDS (25.2-36.5)
[2025-06-06 17:50] LABS: GLUCOSE,RANDOM 92.0 mg/dL (74-106); TOT PROT 8.3 g/dl (6.4-8.2)
[2025-06-06 17:51] LABS: CO2 29.0 mmol/L (21-32)
[2025-06-06] MEDS ORDERED: PIPERACILLIN/TAZOB 4.5 GM 4.5 GM/100 ML BAG IVPB ONE (17:52)
[2025-06-06 17:53] LABS: ALK PHOS 95.0 U/L (40-150)
[2025-06-06 17:55] LABS: SGOT/AST 32.0 U/L (5-34); SGPT/ALT 34.0 U/L (0-55)
[2025-06-06 17:56] LABS: CREATININE 0.8 mg/dL (0.55-1.3)
[2025-06-06] MEDS: PIPERACILLIN/TAZOB 4.5 GM 4.5 GM in DEXTROSE 5%-WATER 100 ML IVPB ONE (18:02)
[2025-06-06] MEDS ORDERED: VANCOMYCIN 1 GM PREMIX (F) 1 GM/200 ML BAG ONE (19:18)
[2025-06-06] MEDS: VANCOMYCIN 1,000 MG in DEXTROSE 5%-WATER - 200 ML IVPB ONE (19:22)
[2025-06-06] MEDS: VANCOMYCIN 1,000 MG in DEXTROSE 5%-WATER - 250 ML IVPB ONE (19:23)
[2025-06-06] MEDS ORDERED: ACETAMINOPHEN 325 MG TABLET (FP) PO PRN (20:42)
[2025-06-06] MEDS: LACTATED RINGERS SOLUTION 1,000 ML IV SCH (21:27)
[2025-06-06] MEDS: FAMOTIDINE 20 MG/2.5 ML ORAL LIQUID PEG SCH (23:35)
[2025-06-06] MEDS: GLYCOPYRROLATE 1 MG TABLET GT SCH (23:35)
[2025-06-06] MEDS: DOCUSATE NA 100 MG/10 ML UNIT-DOSE CUPS GT SCH (23:35)
[2025-06-06] MEDS: LATANOPROST 0.005% OPHTH SOLN 2.5ML BOTTLE OU SCH (23:37)
[2025-06-06] MEDS: ESCITALOPRAM OXALATE 20 MG TABLET GT SCH (23:39)
[2025-06-06] MEDS: SENNOSIDES 8.6MG TABLET (FP) PO SCH (23:39)
[2025-06-06] MEDS: traZODone HCL 50 MG TABLET (FP) PEG SCH (23:39)
[2025-06-06] MEDS: FAMOTIDINE 20 MG TABLET PEG SCH (23:48)
[2025-06-06] MEDS: BUDESONIDE 0.5 MG/2 ML INH SUSP VIAL NEB SCH (23:48)
[2025-06-07] MEDS: ROSUVASTATIN CA 40 MG TABLET PO SCH (01:44)
[2025-06-07] MEDS: PIPERACILLIN/TAZOB 3.375 GM 3.375 GM in DEXTROSE 5%-WATER - 50 ML IVPB SCH ×2 (01:45→20:24)
[2025-06-07 05:19] VITALS: BMI 27.4
[2025-06-07 08:55] LABS: ABSOLUTE IMMATURE GRANULOCYTES 0.01 x10^3/uL (0.0-0.031); BASOPHILS # 0.06 x10^3/uL (0.01-0.08); EOSINOPHIL % 1.4 % (0.8-7.0); EOSINOPHILS # 0.12 x10^3/uL (0.04-0.54); MCHC 31.4 g/dl (32.3-36.5); MEAN CELL VOLUME 90.2 fl (79.0-92.2); MEAN PLT VOLUME 12.2 fl (9.4-12.4); MONOCYTE # 0.78 x10^3/uL (0.30-0.82); MONOCYTE % 9.2 % (5.3-12.2); RDW 13.6 % (12.2-16.4)
[2025-06-07 09:48] LABS: GLUCOSE,RANDOM 100.0 mg/dL (74-106)
[2025-06-07 09:49] LABS: TOT PROT 7.3 g/dl (6.4-8.2)
[2025-06-07 09:50] LABS: CO2 30.0 mmol/L (21-32)
[2025-06-07 09:51] LABS: ALK PHOS 80.0 U/L (40-150)
[2025-06-07 09:54] LABS: CREATININE 0.86 mg/dL (0.55-1.3); SGOT/AST 26.0 U/L (5-34); SGPT/ALT 25.0 U/L (0-55)
[2025-06-07] MEDS: ENOXAPARIN NA (PORCINE) 40 MG/0.4 ML DISP.SYRIN SQ SCH (10:36)
[2025-06-07] MEDS: ASPIRIN COATED 81 MG TABLET.EC PO SCH (10:37)
[2025-06-07 12:31] VITALS: RESP 18
[2025-06-07] MEDS: PEG 3350/NA SULF BICARB CL/KCL 4000 ML SOLN.RECON PO ONE (14:00)
[2025-06-07] MEDS: POLYETHYLENE GLYCOL (HEALTHYLAX) 3350 17 GM PACKET GT SCH (16:44)
[2025-06-07] MEDS: KETOCONAZOLE 2 % SHAMPOO 120 ML BOTTLE TP SCH (21:57)
[2025-06-07] MEDS: BUDESONIDE 0.5 MG/2 ML INH SUSP VIAL NEB SCH (21:57)
[2025-06-07] MEDS: ROSUVASTATIN CA 20 MG TABLET PO SCH (21:58)
[2025-06-07] MEDS: ZINC OXIDE/PETROLATUM,WHITE 1 APPLIC OINT...G. TP SCH (22:03)
[2025-06-09 07:35] VITALS: PULSE 68
[2025-06-09] MEDS: POLYETHYLENE GLYCOL (HEALTHYLAX) 3350 17 GM PACKET GT SCH (10:37)
[2025-06-09] MEDS: SELENIUM SULFIDE 2.5% LOTION 4 OZ. TP SCH (13:33)
[2025-06-09 17:31] VITALS: BP 107/80; TEMP 97.9
== END 2025-06-09 19:25 | disposition left against medical advice (07) | DRG 394 ==
LOC: JER 16:15 → JERBED 18:46 → J5S 22:25
PROVIDERS: ADMIT Internal Medicine; ATTEND Internal Medicine
DX: K94.22 Gastrostomy infection (principal); J96.10 Chronic respiratory failure, unspecified whether with hypoxia or hypercapnia; L03.311 Cellulitis of abdominal wall; I10 Essential (primary) hypertension; E78.5 Hyperlipidemia, unspecified; Y83.8 Other surgical procedures as the cause of abnormal reaction of the patient, or of later complication, without mention of misadventure at the time of the procedure; J44.9 Chronic obstructive pulmonary disease, unspecified; H40.9 Unspecified glaucoma; K59.00 Constipation, unspecified; D64.9 Anemia, unspecified; Z93.0 Tracheostomy status
CPT/HCPCS: 36415; 71045-TC-FY; 74177-TC; 80053; 83690; 83735; 84100; 85025; 85610; 85730; 87040; 87070; 87077; 87205; 87637-QW; 93005; 93010; 99285-25; Q9967